=== PATIENT | female | born 1985 | race Caucasian/White ===

== ENCOUNTER 2017-01-22 05:45 | Inpatient (IN) | payer OTHER ==
[~2017-01-22] VITALS: Ht 165.1 cm; Wt 103.4 kg
[2017-01-22] MEDS ORDERED: DEXT 5% / LACT RING 1,000 ML IV SCH (06:10)
[2017-01-22 06:33] VITALS: BP 116/75
[2017-01-22 06:46] LABS: BASOPHILS # (AUTO) 0.1 K/uL (0.00-0.22); BASOPHILS % (AUTO) 0.7 % (0.0-2.0); EOSINOPHILS # (AUTO) 0.2 K/uL (0-0.4); EOSINOPHILS % (AUTO) 1.8 % (0.0-4.0); HEMATOCRIT 38.9 % (36-48); HEMOGLOBIN 12.7 g/dL (12.0-16.0); LYMPHOCYTES # (AUTO) 2.4 K/uL (2.5-16.5); LYMPHOCYTES % (AUTO) 20.2 % (20.5-51.1); MEAN CORPUSCULAR HEMOGLOBIN 25 pg (27-31); MEAN CORPUSCULAR HGB CONC 33 g/dL (33-37); MEAN CORPUSCULAR VOLUME 76 fL (80-94); MONOCYTES # (AUTO) 0.8 K/uL (0.8-1.0); MONOCYTES % (AUTO) 6.7 % (1.7-9.3); NEUTROPHILS # (AUTO) 8.6 K/uL (1.8-7.7); NEUTROPHILS % (AUTO) 70.6 % (42.2-75.2); PLATELET COUNT (AUTO) 153 K/uL (140-450); RED CELL DISTRIBUTION WIDTH 15.1 % (11.6-13.7); WHITE BLOOD COUNT (AUTO) 12.1 K/uL (4.8-10.8)
[2017-01-22 07:08] LABS: ALBUMIN 2.4 g/dL (3.4-5.0); ANION GAP 13.4 (8-16); CALCIUM 8.6 mg/dL (8.5-10.1); CARBON DIOXIDE 21.5 mmol/L (21-32); CREATININE 0.5 mg/dL (0.6-1.3); POTASSIUM 3.9 mmol/L (3.5-5.1); TOTAL BILIRUBIN 0.2 mg/dL (0.0-1.0); TOTAL PROTEIN, SERUM 6.5 g/dL (6.4-8.2)
[2017-01-22] MEDS ORDERED: OXYTOCIN 10 UNITS/ML VIAL ONE ×2 (07:15→07:25)
[2017-01-22 07:19] LABS: APPEARANCE,URINE CLEAR (CLEAR); BILIRUBIN,URINE NEGATIVE (NEGATIVE); BLOOD, URINE NEGATIVE (NEGATIVE); COLOR,URINE YELLOW (YELLOW); LEUKOCYTE ESTERASE ,URINE TRACE (NEGATIVE); NITRITE, URINE NEGATIVE (NEGATIVE); PH,URINE 6.5 (5.0-9.0); PROTEIN,URINE NEGATIVE (NEGATIVE); UGLUCOSE NEGATIVE (NEGATIVE); UROBILINOGEN,URINE 0.2 EU/dL (0.2 - 1)
[2017-01-22] MEDS ORDERED: MORPHINE PRES FREE 10 MG/10 ML AMP IV ONE (07:25)
[2017-01-22] MEDS ORDERED: MIDAZOLAM 2 MG/2 ML VIAL ONE (07:26)
[2017-01-22 07:31] LABS: RBC,URINE 0-2 /HPF (0-5)
[2017-01-22 07:33] LABS: BACTERIA,URINE FEW /HPF (None Seen)
[2017-01-22 07:35] LABS: HIV RAPID SCREEN NON-REACTIVE (NON REACTIV)
[2017-01-22] MEDS ORDERED: PREN-546 PO (07:38)
[2017-01-22] MEDS ORDERED: OXYTOCIN 20 UNITS/LR PREMIX 1,000 ML IV SCH (07:59)
[2017-01-22] MEDS ORDERED: ONDANSETRON 4 MG/2 ML VIAL IVP PRN ×2 (08:00)
[2017-01-22] MEDS ORDERED: diphenhydrAMINE 50 MG/ML VIAL IVP PRN ×2 (08:00)
[2017-01-22] MEDS ORDERED: NALOXONE 0.4 MG/ML VIAL IVP PRN ×3 (08:00)
[2017-01-22] MEDS ORDERED: MEPERIDINE 25 MG/ML SYR IVP PRN (08:00)
[2017-01-22] MEDS ORDERED: NALBUPHINE 10 MG/ML AMP IVP PRN (08:00)
[2017-01-22] MEDS ORDERED: HYDROmorphone 1 MG/ML AMP IVP PRN (08:00)
[2017-01-22 08:06] LABS: RAPID PLASMA REAGIN NON-REACTIVE (Non Reactiv)
[2017-01-22] MEDS ORDERED: diphenhydrAMINE 50 MG/ML VIAL ONE (08:30)
[2017-01-22] MEDS ORDERED: OXYTOCIN 20 UNITS/LR PREMIX 1,000 ML IV ONE (08:31)
[2017-01-22] MEDS ORDERED: LACTATED RINGERS 1,000 ML IV SCH (08:32)
[2017-01-22] MEDS ORDERED: ONDANSETRON 4 MG/2 ML VIAL ONE (08:32)
[2017-01-22] MEDS ORDERED: TRIMETHOBENZAMIDE 200 MG/2 ML SYR IM PRN (08:45)
[2017-01-22] MEDS ORDERED: MEASLES, MUMPS, AND RUBELLA 1 VIAL SQVAC PRN (08:45)
[2017-01-22] MEDS ORDERED: TEMAZEPAM 15 MG CAP PO PRN (08:45)
[2017-01-22] MEDS ORDERED: METHYLERGONOVINE 0.2 MG/ML AMP IM PRN (08:45)
[2017-01-22] MEDS ORDERED: oxyCODONE/APAP 5/325 MG 1 TAB TAB PO PRN (08:45)
--- NOTE | 2017-01-22 09:41 | NUR ---
PATIENT HAS BEEN SCREENED AND CATEGORIZED LOW NUTRITION RISK. PATIENT WILL BE SEEN WITHIN 7 DAYS OF ADMISSION. 01/28/[address]
[2017-01-22] MEDS: OXYTOCIN 20 UNITS/LR PREMIX 1,000 ML IV SCH ×2 (09:44→17:48)
[2017-01-22] MEDS: KETOROLAC 30 MG/ML VIAL IM/IVP SCH (17:41)
[2017-01-22] MEDS: DOCUSATE SOD/SENNA 50/8.6 MG 1 TAB PO SCH (21:00)
[2017-01-23] MEDS: OXYTOCIN 20 UNITS/LR PREMIX 1,000 ML IV SCH (02:37)
[2017-01-23] MEDS: KETOROLAC 30 MG/ML VIAL IM/IVP SCH (02:45)
[2017-01-23 08:03] LABS: BASOPHILS % (AUTO) 0.3 % (0.0-2.0); EOSINOPHILS # (AUTO) 0.2 K/uL (0-0.4); EOSINOPHILS % (AUTO) 1.9 % (0.0-4.0); HEMOGLOBIN 9.9 g/dL (12.0-16.0); LYMPHOCYTES # (AUTO) 2.6 K/uL (2.5-16.5); LYMPHOCYTES % (AUTO) 20.7 % (20.5-51.1); MEAN CORPUSCULAR HEMOGLOBIN 25 pg (27-31); MEAN CORPUSCULAR HGB CONC 32 g/dL (33-37); MEAN CORPUSCULAR VOLUME 77 fL (80-94); MONOCYTES # (AUTO) 1.1 K/uL (0.8-1.0); MONOCYTES % (AUTO) 8.5 % (1.7-9.3); NEUTROPHILS # (AUTO) 8.6 K/uL (1.8-7.7); NEUTROPHILS % (AUTO) 68.6 % (42.2-75.2); PLATELET COUNT (AUTO) 135 K/uL (140-450); RED BLOOD CELL COUNT(AUTO) 4.01 MIL/uL (4.20-5.40); RED CELL DISTRIBUTION WIDTH 15.8 % (11.6-13.7); WHITE BLOOD COUNT (AUTO) 12.5 K/uL (4.8-10.8)
[2017-01-23] MEDS: SIMETHICONE 80 MG TAB.CHEW PO PRN (17:51)
[2017-01-23] MEDS: HYDROcodone/APAP 5/325 MG 1 TAB TAB PO PRN (20:47)
[2017-01-23] MEDS: DOCUSATE SOD/SENNA 50/8.6 MG 1 TAB PO SCH (20:49)
[2017-01-24] MEDS: HYDROcodone/APAP 5/325 MG 1 TAB TAB PO PRN ×2 (06:45→16:13)
[2017-01-24] MEDS ORDERED: SODIUM PHOSPHATE 118 ML ENEM RC PRN (08:20)
[2017-01-24] MEDS: SIMETHICONE 80 MG TAB.CHEW PO PRN (10:03)
[2017-01-24] MEDS: SODIUM PHOSPHATE 118 ML ENEM RC PRN ×2 (10:05→10:13)
[2017-01-24] MEDS: DOCUSATE SOD/SENNA 50/8.6 MG 1 TAB PO SCH (20:56)
[2017-01-25] MEDS: HYDROcodone/APAP 5/325 MG 1 TAB TAB PO PRN (00:42)
[2017-01-25] MEDS ORDERED: IBUP800T99 PO (08:05)
== END 2017-01-25 16:20 | disposition home or self-care (01) | DRG 540 ==
LOC: MLD 05:45 → MFCC 08:35
PROVIDERS: ADMIT Obstetrics & Gynecology; ATTEND Obstetrics & Gynecology
PROC: 3E0234Z Introduction of Serum, Toxoid and Vaccine into Muscle, Percutaneous Approach (ICD-10-PCS; 2017-01-22)
PROC: 10D00Z1 Extraction of Products of Conception, Low, Open Approach (ICD-10-PCS; principal; 2017-01-22 07:30)
DX: O34.211 Maternal care for low transverse scar from previous cesarean delivery (principal); O16.4 Unspecified maternal hypertension, complicating childbirth; O24.420 Gestational diabetes mellitus in childbirth, diet controlled; M41.9 Scoliosis, unspecified; E66.01 Morbid (severe) obesity due to excess calories; O99.824 Streptococcus B carrier state complicating childbirth; O99.89 Other specified diseases and conditions complicating pregnancy, childbirth and the puerperium; O99.214 Obesity complicating childbirth; O89.4 Spinal and epidural anesthesia-induced headache during the puerperium; Z3A.39 39 weeks gestation of pregnancy; Z37.0 Single live birth; O09.293 Supervision of pregnancy with other poor reproductive or obstetric history, third trimester; Z83.3 Family history of diabetes mellitus; Z82.49 Family history of ischemic heart disease and other diseases of the circulatory system; Z68.37 Body mass index [BMI] 37.0-37.9, adult; Z23 Encounter for immunization
CPT/HCPCS: 36415; 80053; 81001; 82948; 85025; 86592; 86886; 86900; 86901; 87081; 90715; J0690; J1200; J1885; J2250; J2270; J2405; J2590; J3250; J7060; J7120